=== PATIENT | female | born 1960 | race Two or more races ===

== ENCOUNTER → 2022-10-22 | Emergency (ER) | payer OTHER ==
[~2022-10-22] VITALS: Ht 154.9 cm; Wt 45.0 kg
[2022-10-22 13:17] VITALS: BP 125/88
== END | disposition left against medical advice (07) ==
LOC: ER 12:51
DX: F41.9 Anxiety disorder, unspecified (principal); R44.0 Auditory hallucinations; M79.10 Myalgia, unspecified site
CPT/HCPCS: 36415; 80320

== ENCOUNTER 2024-01-11 12:20 | Emergency (ER) | payer OTHER ==
[~2024-01-11] VITALS: Ht 154.9 cm; Wt 52.2 kg
[2024-01-11 12:48] VITALS: PULSE 85; RESP 22; O2SAT 95
[2024-01-11] MEDS: HYDROcodone-ACET 5/325MG TAB PO ONE ×2 (13:05→14:25)
[2024-01-11 13:34] VITALS: BP 116/75; PULSE 85; RESP 22; O2SAT 95
== END 2024-01-11 14:36 | disposition home or self-care (01) ==
LOC: EDBD 12:20 → ER 12:20
DX: S42.295A Other nondisplaced fracture of upper end of left humerus, initial encounter for closed fracture (principal); S76.912A Strain of unspecified muscles, fascia and tendons at thigh level, left thigh, initial encounter; F41.9 Anxiety disorder, unspecified; G89.29 Other chronic pain; M54.50 Low back pain, unspecified; Z88.5 Allergy status to narcotic agent; Z88.6 Allergy status to analgesic agent; W01.0XXA Fall on same level from slipping, tripping and stumbling without subsequent striking against object, initial encounter; Y93.89 Activity, other specified; Y92.89 Other specified places as the place of occurrence of the external cause; Y99.8 Other external cause status
CPT/HCPCS: 29105; 73030